=== PATIENT | female | born 1980 ===

== ENCOUNTER 2020-08-09 14:43 | Emergency (ER) ==
[~2020-08-09] VITALS: Ht 162.6 cm; Wt 77.3 kg
== END 2020-08-09 15:25 | disposition left against medical advice (07) ==
LOC: COL.ER 14:43
DX: R10.9 Unspecified abdominal pain (principal); R11.10 Vomiting, unspecified; R30.9 Painful micturition, unspecified; Z53.21 Procedure and treatment not carried out due to patient leaving prior to being seen by health care provider